=== PATIENT | male | born 1965 | race Caucasian/White ===

== ENCOUNTER 2020-01-06 09:41 | Emergency (ER) | payer MEDICAID ==
[~2020-01-06] VITALS: Ht 177.8 cm; Wt 90.0 kg
[2020-01-06] MEDS ORDERED: AMOXICILLIN/POTASSIUM CLAVULANATE 875/125MG TAB PO ONE (10:30)
[2020-01-06] MEDS ORDERED: IBUPROFEN 800MG TABLET PO ONE (10:30)
[2020-01-06] MEDS ORDERED: ACETAMINOPHEN 500MG TABLET PO ONE (10:30)
[2020-01-06 11:19] VITALS: BP 158/98
== END 2020-01-06 11:20 | disposition home or self-care (01) ==
LOC: ER 09:41
DX: K04.7 Periapical abscess without sinus (principal); K02.9 Dental caries, unspecified
CPT/HCPCS: 93005; 99284

== ENCOUNTER 2020-01-06 11:35 | Emergency (ER) | payer MEDICAID | END 2020-01-06 13:15 | disposition left against medical advice (07) | LOC: ER 11:35 | DX: R10.9 Unspecified abdominal pain (principal); Z53.21 Procedure and treatment not carried out due to patient leaving prior to being seen by health care provider ==